=== PATIENT | male | born 1970 | race Caucasian/White ===

== ENCOUNTER 2022-10-09 08:13 | Emergency (ER) | payer BC ==
[~2022-10-09] VITALS: Ht 185.4 cm; Wt 83.9 kg
[~2022-10-09 08:13] MED LIST: PROM25 PO
[2022-10-09 08:22] VITALS: BP 135/87
[2022-10-09] MEDS ORDERED: Ativan1 MG PO (08:37)
[2022-10-09] MEDS ORDERED: EUTHYROX75 MC1 PO (08:39)
[2022-10-09] MEDS ORDERED: FLUO10 PO (08:39)
[2022-10-09] MEDS ORDERED: Ketoconazole120 ML TOP (08:39)
== END 2022-10-09 08:56 | disposition home or self-care (01) ==
LOC: ER 08:13
DX: G47.00 Insomnia, unspecified (principal); F43.9 Reaction to severe stress, unspecified; Z79.890 Hormone replacement therapy; Z79.899 Other long term (current) drug therapy
CPT/HCPCS: 99283